=== PATIENT | female | born 1955 | race Caucasian/White ===

== ENCOUNTER 2022-07-14 08:31 | Inpatient (IN) | payer MEDICARE, OTHER ==
[2022-07-07 15:39] LABS: BASOPHILS # (AUTO) 0.1 X10'3 (0-0.2); BASOPHILS % (AUTO) 0.9 % (0-1); EOSINOPHILS # (AUTO) 0.2 X10'3 (0-0.9); EOSINOPHILS % (AUTO) 2.1 % (0-6); LYMPHOCYTES # (AUTO) 2.2 X10'3 (1.1-4.8); LYMPHOCYTES % (AUTO) 20.8 % (21-51); MEAN CORPUSCULAR HEMOGLOBIN 31.3 PG (27.0-31.0); MEAN CORPUSCULAR HGB CONC 33.4 g/dL (33.0-36.5); MEAN CORPUSCULAR VOLUME 93.8 FL (78-98); MEAN PLATELET VOLUME 7.9 FL (7.4-10.4); MONOCYTES # (AUTO) 0.6 X10'3 (0-0.9); NEUTROPHILS # (AUTO) 7.3 X10'3 (1.8-7.7); NEUTROPHILS % (AUTO) 70.2 % (42-75); PRE OP HEMATOCRIT 43.6 % (35.0-45.0); PRE OP HEMOGLOBIN 14.5 g/dL (12.0-16.0); PRE OP PLATELET COUNT 253 X10'3 (140-440); RED BLOOD COUNT 4.64 X10'6 (4.20-5.60); RED CELL DISTRIBUTION WIDTH 13.7 % (11.5-14.5)
[2022-07-07 15:53] LABS: ALBUMIN 3.7 G/DL (3.4-5.0); ALBUMIN/GLOBULIN RATIO 1.1 (1.1-1.5); ALKALINE PHOSPHATASE 48 IU/L (46-116); BLOOD UREA NITROGEN 11 MG/DL (7-18); CALCIUM 8.8 MG/DL (8.5-10.1); CHLORIDE 104 MMOL/L (99-107); CREATININE 0.92 MG/DL (0.40-0.90); PRE OP ALT 28 U/L (30-65); PRE OP ANION GAP 7 (8-16); PRE OP AST 16 U/L (10-37); PRE OP BILIRUB, TOTAL 0.3 MG/DL (0.0-1.0); PRE OP POTASSIUM 3.7 MMOL/L (3.4-5.1); PRE OP SODIUM 140 MMOL/L (135-145); TOTAL CARBON DIOXIDE 29.4 MMOL/L (24-32); TOTAL PROTEIN 7.1 G/DL (6.4-8.2); eGFR 61 ML/MIN
[2022-07-07 16:01] LABS: PRE OP GLUCOSE 213 MG/DL (70-104)
[2022-07-14] VITALS (36 sets, daily range): BP systolic 92–137; BP diastolic 54–89
[~2022-07-14] VITALS: Ht 157.5 cm; Wt 77.4 kg
[~2022-07-14 08:31] MED LIST: VIT C PO; VIT D PO; [UNRECOGNIZED DRUG - OTHER] PO; [UNRECOGNIZED DRUG - OTHER] PO; ceFAZolin inj. 2,000 MG in dextrose 5%-water 100 ML IV ONE; famotidine 20mg tablet PO ONE; ringers solution, lacted 1,000 ML IV SCH
[2022-07-14] MEDS ORDERED: BUPIVAcaine 0.5% inj/PF 30 ML ONE ×2 (10:29→10:41)
[2022-07-14] MEDS ORDERED: LIDOcaine 1% 30ml preserv. free vial ONE (10:29)
[2022-07-14] MEDS ORDERED: fentaNYL/PF 50MCG/1 ML 2ML syringe ONE (10:35)
[2022-07-14] MEDS ORDERED: midazolam 1 mg/ML 2ml injection ONE (10:36)
[2022-07-14] MEDS ORDERED: morphine 2 MG/ML inj. syringe IV PRN (10:40)
[2022-07-14] MEDS ORDERED: meperidine/PF 25mg/ml syringe IV PRN ×3 (10:40)
[2022-07-14] MEDS ORDERED: ondansetron/PF 4mg/2ml inj IV PRN ×2 (10:40→17:15)
[2022-07-14] MEDS ORDERED: morphine 4 MG/ML inj SYRINge IV PRN (10:40)
[2022-07-14] MEDS ORDERED: proCHLORperazine 10 MG/2 ml inj IV PRN (10:40)
[2022-07-14] MEDS ORDERED: ringers solution, lacted 1,000 ML IV SCH ×2 (10:40→17:15)
[2022-07-14] MEDS ORDERED: BUPIVACAINE liposomal/PF 13.3 MG/ML vial IM ONE (10:41)
[2022-07-14] MEDS ORDERED: sevoflurane 250ml liquid IH ONE (10:47)
[2022-07-14] MEDS ORDERED: epiNEPHrine 0.1mg/ml 10ml syringe ONE (10:47)
[2022-07-14] MEDS ORDERED: rocuronium 10mg/ml inj IV ONE ×2 (10:47→12:58)
[2022-07-14] MEDS ORDERED: BUPIVAcaine 0.5% inj/PF 30 ml vial IJ ONE (11:08)
[2022-07-14] MEDS ORDERED: ondansetron/PF 4mg/2ml inj ONE (12:58)
[2022-07-14] MEDS ORDERED: neostigmine methylsulfate 1 MG/ML 10ml vial ONE (12:58)
[2022-07-14] MEDS ORDERED: dexamethasone sod phosphate 4mg/ml inj. ONE (12:58)
[2022-07-14] MEDS ORDERED: LIDOcaine 2% (20mg/ml) 5ml vial ONE (12:58)
[2022-07-14] MEDS ORDERED: glycopyrrolate 0.2mg/ml inj ONE (12:58)
[2022-07-14] MEDS ORDERED: propofol inj 20 ML IV ONE (12:58)
[2022-07-14] MEDS ORDERED: acetaminophen 1,000mg/100ml IV 100 ML IV ONE (12:58)
[2022-07-14] MEDS ORDERED: meperidine/PF 25mg/ml syringe ONE (13:20)
--- NOTE | 2022-07-14 13:30 | NUR ---
Received from OR via [facility] , accompanied by Anesthesiologist DR HDZ and report given by Anesthesiologist AND HOSPITAL SALES REPRESENTATIVE. PT VERY DROWSY W/ETT, VSS, NO S/S OF DISTRESS/DISCOMFORT, ABDOMINAL BINDER ON AND IN PLACE OVER INCISIONS. Addendum: 07/14/22 at 1351 by Jagruti Banegas RN Amended: Links added.
[2022-07-14] MEDS ORDERED: PER5325T PO (13:56)
[2022-07-14] MEDS: oxyCODONE/APAP 5-325mg tablet PO PRN (16:58)
[2022-07-14] MEDS ORDERED: normal saline 1000ml 1,000 ML IV SCH (17:15)
[2022-07-14] MEDS ORDERED: naloxone 0.4 mg/ml inj IV PRN (17:15)
[2022-07-14] MEDS: HYDROmorph/NS 0.2 mg/ml PCA 100 ML IV SCH ×4 (18:23→23:00)
--- NOTE | 2022-07-14 19:04 | NUR ---
Received report from surg physician asst. Patient to follow shortly.
--- NOTE | 2022-07-14 19:20 | NUR ---
Report called to receiving nurse. Transferred via gurney, 2 bags of Belongings sent w/pt to room 357b. pt able to ambulate to bathroom for void and return to bed w/o difficulty. Receiving RN at bedside to receive pt, BLL, calll light given, side rails up x 2. Pt tolerating pain w/Dilaudid CADD. Special Issues communicated to receiving nurse. Yes. Addendum: 07/14/22 at 1940 by Jagruti Banegas RN Amended: Links added.
[2022-07-14] MEDS: heparin, porcine 5000 units/ml vial SQ SCH (20:00)
[2022-07-14] MEDS: docusate sod 100mg capsule PO SCH (21:29)
[2022-07-14] MEDS: sennosides/docusate sodium tablet PO SCH (21:29)
[2022-07-15] MEDS: HYDROmorph/NS 0.2 mg/ml PCA 100 ML IV SCH ×5 (01:00→09:00)
[2022-07-15 02:00] VITALS: BP 101/56
[2022-07-15 06:00] VITALS: BP 108/41
--- NOTE | 2022-07-15 06:30 | NUR ---
Problems reprioritized. Patient report given, questions answered & plan of care reviewed with Marline VIEIRA.
[2022-07-15] MEDS: docusate sod 100mg capsule PO SCH (07:38)
[2022-07-15] MEDS: heparin, porcine 5000 units/ml vial SQ SCH (07:40)
[2022-07-15] MEDS: sennosides/docusate sodium tablet PO SCH (07:40)
--- NOTE | 2022-07-15 12:00 | NUR ---
I have reviewed and agree with all interventions, assessments performed, and documentation by Marline Rose LVN.
[2022-07-15] MEDS ORDERED: PCA WASTE DOCUMENTATION MC SCH (12:35)
[2022-07-15] MEDS: oxyCODONE/APAP 5-325mg tablet PO PRN (12:56)
== END 2022-07-15 13:20 | disposition home or self-care (01) | DRG 337 ==
LOC: PAS 08:31 → EDSEX 10:30 → SUR 3N 17:19 → OBSVTOIN 17:19
PROVIDERS: ADMIT Surgery; ATTEND Surgery
PROC: 0DN84ZZ Release Small Intestine, Percutaneous Endoscopic Approach (ICD-10-PCS; 2022-07-14)
PROC: 0DNU4ZZ Release Omentum, Percutaneous Endoscopic Approach (ICD-10-PCS; 2022-07-14)
PROC: 8E0W4CZ Robotic Assisted Procedure of Trunk Region, Percutaneous Endoscopic Approach (ICD-10-PCS; 2022-07-14)
PROC: 3E0T3BZ Introduction of Anesthetic Agent into Peripheral Nerves and Plexi, Percutaneous Approach (ICD-10-PCS; 2022-07-14)
PROC: 0WUF4JZ Supplement Abdominal Wall with Synthetic Substitute, Percutaneous Endoscopic Approach (ICD-10-PCS; principal; 2022-07-14 10:47)
DX: K43.2 Incisional hernia without obstruction or gangrene (principal); K66.0 Peritoneal adhesions (postprocedural) (postinfection)
CPT/HCPCS: 36415; 80053; 82948; 83036; 85025; 87081; 93005; A4215; A4615; A4618; C1713; C1758; C1781; C9290; G0378; J0131; J0171; J0690; J1100; J1170; J2175; J2250; J2405; J2704; J2710; J3010; J3490; J7060; J7120; S0020